=== PATIENT | female | born 2000 | race Caucasian/White ===

== ENCOUNTER 2025-03-23 23:07 | Emergency (ER) | payer MEDICAID ==
[~2025-03-23] VITALS: Ht 167.6 cm; Wt 137.0 kg
[2025-03-24] MEDS: PREDNISONE 20MG TABLET PO ONE (00:39)
[2025-03-24] MEDS: ALBUTEROL (0.083%) 2.5MG/3ML NEB HHN ONE (01:02)
[2025-03-24 01:04] VITALS: PULSE 84; RESP 18; O2SAT 98
[2025-03-24] MEDS: IPRATROPIUM BROMIDE (0.02%) 0.5MG/2.5ML NEB HHN ONE (01:04)
[2025-03-24] MEDS ORDERED: NEBU-281 MC (02:14)
[2025-03-24] MEDS ORDERED: ALBU18HF2 IH (02:14)
[2025-03-24] MEDS ORDERED: P50 MT (02:14)
[2025-03-24] MEDS ORDERED: ALBU05 NEB (02:14)
[2025-03-24 02:24] VITALS: BP 4/93; PULSE 82; RESP 14; TEMP 36.6; O2SAT 99
== END 2025-03-24 02:32 | disposition home or self-care (01) ==
LOC: ER 23:07
DX: J45.901 Unspecified asthma with (acute) exacerbation (principal); Z79.52 Long term (current) use of systemic steroids; Z79.899 Other long term (current) drug therapy
CPT/HCPCS: 99283; 71045; 94640; Z7610 ×4; J7512; 94070; 99291